=== PATIENT | female | born 1950 | race Caucasian/White ===

== ENCOUNTER 2018-12-17 12:41 | Outpatient (CLI) | payer OTHER, BC | END 2018-12-17 15:00 | disposition home or self-care (01) | LOC: LAB 12:41 | DX: N39.0 Urinary tract infection, site not specified (principal) ==

== ENCOUNTER 2020-08-17 14:20 | Outpatient (CLI) | payer OTHER, BC | END 2020-08-17 14:23 | disposition home or self-care (01) | LOC: MRI 14:20 | PROVIDERS: ATTEND Orthopaedic Surgery | DX: M75.51 Bursitis of right shoulder (principal); M75.31 Calcific tendinitis of right shoulder; M25.511 Pain in right shoulder; M75.101 Unspecified rotator cuff tear or rupture of right shoulder, not specified as traumatic; M75.121 Complete rotator cuff tear or rupture of right shoulder, not specified as traumatic | CPT/HCPCS: 73218 ==

== ENCOUNTER 2020-12-27 07:47 | Day surgery (SDC) | payer OTHER, BC ==
[~2020-12-27 07:47] MED LIST: ESTRADIOL0.5 MG PO; FOLIC ACID0.8 M1 PO; GABAPENTIN300 M2 PO; PROAIR HFA8.5 GM IH; PROTONIX40 MG PO; ROSUVASTATIN CAL5 MG PO
== END 2020-12-27 18:15 | disposition home or self-care (01) ==
LOC: CIR.AMB 07:47
PROVIDERS: ATTEND Colon & Rectal Surgery
DX: K64.8 Other hemorrhoids (principal); K64.4 Residual hemorrhoidal skin tags; Z20.822 Contact with and (suspected) exposure to COVID-19

== ENCOUNTER 2023-01-21 11:21 | Outpatient (CLI) | payer OTHER, BC | END 2023-01-21 11:24 | disposition home or self-care (01) | LOC: RAD 11:21 | PROVIDERS: ATTEND Orthopaedic Surgery | DX: M79.644 Pain in right finger(s) (principal); M25.561 Pain in right knee; M25.562 Pain in left knee ==

== ENCOUNTER 2023-01-21 13:00 | Outpatient (CLI) | payer OTHER, BC | END 2023-01-21 13:01 | disposition home or self-care (01) | LOC: LAB 13:00 | PROVIDERS: ATTEND Radiology Diagnostic Radiology | DX: R41.0 Disorientation, unspecified (principal) ==

== ENCOUNTER 2023-01-28 09:11 | Outpatient (CLI) | payer OTHER, BC | END 2023-01-28 09:20 | disposition home or self-care (01) | LOC: MRI 09:11 | PROVIDERS: ATTEND Orthopaedic Surgery | DX: R41.0 Disorientation, unspecified (principal); M54.10 Radiculopathy, site unspecified; S83.200A Bucket-handle tear of unspecified meniscus, current injury, right knee, initial encounter | CPT/HCPCS: 70553; 73721; Q9965; 70551 ==

== ENCOUNTER 2024-11-16 13:10 | Outpatient (CLI) | payer OTHER, BC | END 2024-11-16 13:20 | disposition home or self-care (01) | LOC: MRI 13:10 | PROVIDERS: ATTEND General Practice | DX: M54.50 Low back pain, unspecified (principal); M54.10 Radiculopathy, site unspecified | CPT/HCPCS: 72148 ==